=== PATIENT | female | born 1945 | race Hispanic/Latino ===

== ENCOUNTER 2023-12-16 08:29 | Inpatient (IN) | payer OTHER ==
[2023-12-16] MEDS ORDERED: HYDROcodone/Acetaminophen 10/325 mg Tablet PO PRN (16:52)
[2023-12-16] MEDS: Carvedilol 3.125 MG TAB PO SCH (17:59)
[2023-12-16] MEDS: cloNIDine 0.1 MG TAB PO PRN (17:59)
[2023-12-16] MEDS: hydrALAZINE 25 MG TAB PO SCH (20:23)
[2023-12-16] MEDS: Donepezil HCl 10 MG TAB PO SCH (20:24)
[2023-12-16] MEDS: metFORMIN 500 MG TAB PO SCH (20:24)
[2023-12-16] MEDS: Amlodipine 5 MG TAB PO SCH (20:25)
[2023-12-16] MEDS: Gabapentin 300 MG CAP PO SCH (20:25)
[2023-12-16] MEDS: Atorvastatin Calcium 10 MG TAB PO SCH (20:25)
[2023-12-17] MEDS ORDERED: Lisinopril 5 MG TAB PO SCH (09:00)
[2023-12-17] MEDS: Multivitamin W/ Minerals 1 TAB PO SCH (09:07)
[2023-12-17] MEDS: Ferrous Sulfate 325 MG TAB PO SCH (09:08)
[2023-12-17] MEDS: Ascorbic Acid 500 mg Chewable Tablet PO SCH (09:08)
[2023-12-17] MEDS: Potassium Chloride 20 MEQ TAB PO SCH (09:08)
[2023-12-17] MEDS: Magnesium Oxide 400 MG TAB PO SCH (09:08)
[2023-12-17] MEDS: Furosemide 20 MG TAB PO SCH (09:08)
[2023-12-17] MEDS: Calcium Carbonate 600 MG + Vit D TAB PO SCH (09:08)
[2023-12-17] MEDS: Pantoprazole DR 40 MG TAB PO SCH (09:09)
[2023-12-17] MEDS: Cholecalciferol 1,000 UNITS (25 MCG) TAB PO SCH (09:09)
[2023-12-17] MEDS: Sertraline 100 MG TAB PO SCH (09:09)
[2023-12-17] MEDS: Lisinopril 20 MG TAB PO SCH (09:09)
[2023-12-17] MEDS: Aspirin 81 mg Enteric Coated Tablet PO SCH (09:10)
[2023-12-17] MEDS: Heparin 5,000 UNITS/ML VIAL SC SCH (09:10)
[2023-12-17] MEDS: Carvedilol 3.125 MG TAB PO SCH (18:34)
[2023-12-17] MEDS: Ondansetron ODT 4 MG TAB PO PRN (21:39)
[2023-12-18 04:59] LABS: #Eosinphils 0.1 thou/uL (0.0-0.7); #Monocytes 0.3 thou/uL (0.11-0.59); #Neutrophils 2.5 thou/uL (1.40-6.50); %Basophils 0.9 % (0.0-1.0); %Eosinophils 3.1 % (0.0-10.0); %Lymphocytes 25.9 % (21.0-51.0); %Monocytes 7.6 % (0.0-10.0); %Neutrophils 62.6 % (42.0-75.0); Hematocrit 23.4 % (36.0-47.0); Hemoglobin 7.6 g/dL (12.0-16.0); Mean Corpuscular HGB CONC 32.7 g/dL (32.0-36.0); Mean Corpuscular Hemoglobin 30.6 pg (27.0-31.0); Mean Corpuscular Volume 93.5 fl (78.0-98.0); Mean Platelet Volume 6.4 fL (7.4-10.4); Platelet Count 186 10x3/uL (130-400); RBC Distribution Width 12.9 % (11.5-14.5)
[2023-12-18 05:18] LABS: ALT (SGPT) 18 U/L (8-55); AST (SGOT) 29 U/L (5-34); Albumin 2.4 g/dL (3.4-4.8); Alkaline Phosphatase 98 U/L (40-110); Anion Gap 11 mmol/L (10-20); BUN (Urea Nitrogen) 33 mg/dL (9.8-20.1); Bilirubin, Total 0.2 mg/dL (0.2-1.2); Calc. Creatinine Clearance 31 mL/min (70-130); Calcium 8.2 mg/dL (7.8-10.44); Carbon Dioxide 21 mmol/L (23-31); Chloride 114 mmol/L (98-107); Estimated GFR 39; Globulin 2.9 g/dL (2.4-3.5); Glucose 109 mg/dL (83-110); Potassium 4.6 mmol/L (3.5-5.1); Protein, Total 5.3 g/dL (5.8-8.1); Sodium 141 mmol/L (136-145)
[2023-12-18] MEDS: Saccharomyces boulardii 250 MG CAP PO SCH (09:15)
[2023-12-18] MEDS: Carvedilol 6.25 MG TAB PO SCH (09:15)
[2023-12-18] MEDS: Sodium Chloride 0.9% 1,000 ML IV SCH (09:17)
[2023-12-21] MEDS: metFORMIN 500 MG TAB PO SCH (08:46)
[2023-12-21] MEDS: Carvedilol 3.125 MG TAB PO SCH (08:46)
[2023-12-21 16:36] LABS: Adenovirus F 40-41 Not Detected (Not Detected); Astrovirus Not Detected (Not Detected); C. difficile toxin A+B Not Detected (Not Detected); Campylobacter by PCR Not Detected (Not Detected); Cryptosporidium Not Detected (Not Detected); Cyclospora cayetanensis Not Detected (Not Detected); Entamoeba histolytica Not Detected (Not Detected); Enteroaggregative E. coli Not Detected (Not Detected); Enteropathogenic E. coli Not Detected (Not Detected); Enterotoxigenic E. coli Not Detected (Not Detected); Giardia lamblia Not Detected (Not Detected); Norovirus GI-GII Not Detected (Not Detected); Plesiomonas shigelloides Not Detected (Not Detected); Rotavirus A Not Detected (Not Detected); Salmonella DETECTED (Not Detected); Sapovirus Not Detected (Not Detected); Shiga-toxin-producing E coli Not Detected (Not Detected); Shigella/Enteroinvasive E coli Not Detected (Not Detected); Vibrio Not Detected (Not Detected); Vibrio cholerae Not Detected (Not Detected); Yersinia enterocolitica Not Detected (Not Detected)
[2023-12-22] MEDS: Acetaminophen 325 MG TAB PO PRN (02:27)
[2023-12-24 05:52] VITALS: BMI 23.2
[2023-12-25 06:35] LABS: #Basophils 0.1 thou/uL (0.0-0.2); #Eosinphils 0.1 thou/uL (0.0-0.7); #Lymphocytes 1.2 thou/uL (1.20-3.40); #Monocytes 0.2 thou/uL (0.11-0.59); #Neutrophils 2.8 thou/uL (1.40-6.50); %Basophils 1.5 % (0.0-1.0); %Eosinophils 3.3 % (0.0-10.0); %Lymphocytes 26.5 % (21.0-51.0); %Monocytes 4.6 % (0.0-10.0); %Neutrophils 64.1 % (42.0-75.0); Hematocrit 26.4 % (36.0-47.0); Hemoglobin 8.4 g/dL (12.0-16.0); Mean Corpuscular HGB CONC 31.7 g/dL (32.0-36.0); Mean Corpuscular Hemoglobin 30.2 pg (27.0-31.0); Mean Corpuscular Volume 95.4 fl (78.0-98.0); Mean Platelet Volume 6.3 fL (7.4-10.4); Platelet Count 206 10x3/uL (130-400); RBC Distribution Width 13.9 % (11.5-14.5); Red Blood Cell (RBC) Count 2.77 mill/uL (4.20-5.40); White Blood Cell (WBC) Count 4.4 10x3/uL (4.8-10.8)
[2023-12-25 06:49] LABS: ALT (SGPT) 20 U/L (8-55); AST (SGOT) 23 U/L (5-34); Albumin 2.6 g/dL (3.4-4.8); Alkaline Phosphatase 84 U/L (40-110); Anion Gap 13 mmol/L (10-20); BUN (Urea Nitrogen) 27 mg/dL (9.8-20.1); Bilirubin, Total 0.2 mg/dL (0.2-1.2); Calc. Creatinine Clearance 32 mL/min (70-130); Calcium 8.3 mg/dL (7.8-10.44); Carbon Dioxide 23 mmol/L (23-31); Chloride 110 mmol/L (98-107); Estimated GFR 42; Globulin 3.1 g/dL (2.4-3.5); Glucose 94 mg/dL (83-110); Potassium 4.5 mmol/L (3.5-5.1); Protein, Total 5.7 g/dL (5.8-8.1); Sodium 141 mmol/L (136-145)
[2023-12-28] MEDS: Gabapentin 300 MG CAP PO SCH (20:25)
[2023-12-30 15:07] VITALS: BMI 20.8
[2023-12-31 13:25] VITALS: BP 134/67; TEMP 98.5
== END 2023-12-31 14:10 | disposition home health service (06) | DRG 948 ==
LOC: BURMED 16:03
PROVIDERS: ADMIT Family Medicine; ATTEND Family Medicine
DX: R53.81 Other malaise (principal); E11.9 Type 2 diabetes mellitus without complications; F03.90 Unspecified dementia, unspecified severity, without behavioral disturbance, psychotic disturbance, mood disturbance, and anxiety; I50.9 Heart failure, unspecified; Z79.899 Other long term (current) drug therapy
CPT/HCPCS: 36415; 36416; 80053; 85025; 87324; 87449; 87507; J1644; J7050; Q0162

== ENCOUNTER 2024-04-03 18:17 | Inpatient (IN) | payer OTHER ==
[2024-04-10 19:46] VITALS: BMI 22.4
[2024-04-10] MEDS: Carvedilol 3.125 MG TAB PO SCH (20:52)
[2024-04-10] MEDS ORDERED: Ondansetron ODT 4 MG TAB PO PRN (21:22)
[2024-04-10] MEDS ORDERED: Senokot S 8.6-50 MG TAB PO PRN (21:31)
[2024-04-10] MEDS ORDERED: Bisacodyl 10 MG SUPP PR PRN (21:31)
[2024-04-10] MEDS ORDERED: Bisacodyl 5 MG TAB PO PRN (21:31)
[2024-04-10] MEDS: hydrALAZINE 25 MG TAB PO SCH (21:59)
[2024-04-10] MEDS: Atorvastatin Calcium 10 MG TAB PO SCH (22:01)
[2024-04-10] MEDS: traMADol HCl 50 MG TAB PO PRN (22:01)
[2024-04-10] MEDS: Donepezil HCl 10 MG TAB PO SCH (22:01)
[2024-04-10] MEDS: Gabapentin 300 MG CAP PO SCH (22:02)
[2024-04-11] MEDS: Potassium Chloride 20 MEQ TAB PO SCH (08:00)
[2024-04-11] MEDS: Carvedilol 3.125 MG TAB PO SCH (08:04)
[2024-04-11] MEDS: Ferrous Sulfate 325 MG TAB PO SCH (08:48)
[2024-04-11] MEDS: Sertraline 100 MG TAB PO SCH (08:48)
[2024-04-11] MEDS: Saccharomyces boulardii 250 MG CAP PO SCH (08:48)
[2024-04-11] MEDS: Cholecalciferol 1,000 UNITS (25 MCG) TAB PO SCH (08:48)
[2024-04-11] MEDS: Amlodipine 5 MG TAB PO SCH (08:49)
[2024-04-11] MEDS: Calcium Carbonate 500 MG TAB PO SCH (08:49)
[2024-04-11] MEDS: Magnesium Oxide 400 MG TAB PO SCH (08:49)
[2024-04-11] MEDS: Furosemide 20 MG TAB PO SCH (08:49)
[2024-04-11] MEDS: Pantoprazole DR 40 MG TAB PO SCH (08:49)
[2024-04-11] MEDS: hydrALAZINE 25 MG TAB PO SCH (08:50)
[2024-04-11] MEDS: Aspirin 81 mg Enteric Coated Tablet PO SCH (08:50)
[2024-04-11] MEDS: Ascorbic Acid 500 mg Chewable Tablet PO SCH (08:50)
[2024-04-11 12:01] VITALS: BMI 22.4
[2024-04-11] MEDS: Acetaminophen 325 MG TAB PO PRN (16:52)
[2024-04-11] MEDS: Donepezil HCl 10 MG TAB PO SCH (22:14)
[2024-04-11] MEDS: Atorvastatin Calcium 10 MG TAB PO SCH (22:15)
[2024-04-11] MEDS: Gabapentin 300 MG CAP PO SCH (22:15)
[2024-04-12] MEDS: Methocarbamol 500 MG TAB PO PRN (13:43)
[2024-04-12] MEDS: Loperamide HCl 2 MG CAP PO PRN (20:37)
[2024-04-16] MEDS ORDERED: Loperamide HCl 2 MG CAP PO PRN (17:37)
[2024-04-20] MEDS: FLU (Fluad Triv) TS24-25 (65UP)/MF59C/PF 45 MCG/0.5 ML Syringe IM ONE (17:32)
[2024-04-23 00:36] LABS: Adenovirus F 40-41 Not Detected (Not Detected); Astrovirus Not Detected (Not Detected); C. difficile toxin A+B Not Detected (Not Detected); Campylobacter by PCR Not Detected (Not Detected); Cryptosporidium Not Detected (Not Detected); Cyclospora cayetanensis Not Detected (Not Detected); Entamoeba histolytica Not Detected (Not Detected); Enteroaggregative E. coli Not Detected (Not Detected); Enteropathogenic E. coli Not Detected (Not Detected); Enterotoxigenic E. coli Not Detected (Not Detected); Giardia lamblia Not Detected (Not Detected); Norovirus GI-GII Not Detected (Not Detected); Plesiomonas shigelloides Not Detected (Not Detected); Rotavirus A Not Detected (Not Detected); Salmonella Not Detected (Not Detected); Sapovirus Not Detected (Not Detected); Shiga-toxin-producing E coli Not Detected (Not Detected); Shigella/Enteroinvasive E coli Not Detected (Not Detected); Vibrio Not Detected (Not Detected); Vibrio cholerae Not Detected (Not Detected); Yersinia enterocolitica Not Detected (Not Detected)
[2024-04-23 06:07] VITALS: TEMP 97.9
[2024-04-23 09:06] VITALS: BP 152/60
== END 2024-04-23 15:45 | disposition home or self-care (01) | DRG 561 ==
LOC: BURMED 04-10 18:05
PROVIDERS: ADMIT Family Medicine; ATTEND Family Medicine
DX: S32.029D Unspecified fracture of second lumbar vertebra, subsequent encounter for fracture with routine healing (principal); S12.600D Unspecified displaced fracture of seventh cervical vertebra, subsequent encounter for fracture with routine healing; W18.30XD Fall on same level, unspecified, subsequent encounter; I10 Essential (primary) hypertension; F41.9 Anxiety disorder, unspecified; F32.A Depression, unspecified; F03.A0 Unspecified dementia, mild, without behavioral disturbance, psychotic disturbance, mood disturbance, and anxiety; E78.5 Hyperlipidemia, unspecified; E11.9 Type 2 diabetes mellitus without complications; Z90.710 Acquired absence of both cervix and uterus; Z90.49 Acquired absence of other specified parts of digestive tract; Z98.890 Other specified postprocedural states; Z79.82 Long term (current) use of aspirin; Z79.899 Other long term (current) drug therapy; Z82.49 Family history of ischemic heart disease and other diseases of the circulatory system
CPT/HCPCS: 87507; 90653